=== PATIENT | male | born 1945 ===

== ENCOUNTER 2023-11-14 20:48 | Emergency (ER) | payer MEDICARE, SELFPAY ==
[2023-11-14] MEDS: FLUORESCEIN 1 MG STRIP EYE-BOTH (22:05)
[2023-11-14] MEDS: PROPARACAINE 0.5% OPHTH SOL 3 DROPS EYE-BOTH (22:05)
--- NOTE | 2023-11-15 13:06 | PC.NURSE ---
[facility] downtime began 11/14/231999 and continued throughout patient's stay. Refer to paper documentation.
== END 2023-11-14 22:00 | disposition home or self-care (01) ==
PROVIDERS: Emergency Provider Emergency Medicine
DX: H57.13 Ocular pain, bilateral (principal)
CPT/HCPCS: 99281; 99282